=== PATIENT | female | born 1950 | race Caucasian/White ===

== ENCOUNTER 2019-02-20 11:33 | Observation (INO) ==
[2019-02-20 12:01] LABS: Basophils % 0.5 %; Eosinophils # 0.3 K/mcL (0.0-0.6); Eosinophils % 3.5 %; Hematocrit 43.1 % (35.3-44.9); Immature Granulocytes % 0.4 % (0-4); Lymphocytes # 1.9 K/mcL (0.6-4.6); Lymphocytes % 26.1 %; Mean Corpuscular HGB Conc 32.5 g/dL (31.6-35.5); Mean Corpuscular Hemoglobin 29.1 pg (28.0-33.3); Mean Corpuscular Volume 89.6 fL (83.0-100.0); Mean Platelet Volume 9.4 fL (9.4-12.4); Monocytes # 0.7 K/mcL (0.0-1.3); Monocytes % 9.3 %; Neutrophils # 4.4 K/mcL (1.6-8.9); Platelet Count 261 K/mcL (140-400); Red Blood Count 4.81 M/mcL (3.82-4.97); Red Cell Distribution Width 13.4 % (11.5-14.5); Segmented Neutrophils % 60.2 %; White Blood Count 7.4 K/mcL (4.3-11.1)
[2019-02-20 12:08] LABS: Prothrombin Time 11.9 Seconds (9.4-12.1)
[2019-02-20 12:11] LABS: Activated Partial Thrombo Time 40.9 Seconds (26.0-36.0)
[2019-02-20 12:35] LABS: Albumin/Globulin Ratio 1.3 (1.1-2.2); Bilirubin,Direct 0.1 mg/dL (0.0-0.2); Bilirubin,Indirect 0.2 mg/dL (0.0-1.2); Bilirubin,Total 0.3 mg/dL (0.3-1.0); Globulin 3.1 g/dL (2.4-3.5); Magnesium 1.6 mg/dL (1.6-2.6); Total Protein 7.1 g/dL (6.4-8.9)
[2019-02-20 12:36] LABS: BUN/Creatinine Ratio 20 (6-26); Blood Urea Nitrogen 23 mg/dL (8-23); Calcium 9.3 mg/dL (8.6-10.3); Carbon Dioxide 22 mEq/L (23-29); Chloride 109 mEq/L (98-107); Glucose 97 mg/dL (70-105); Osmolality,Calculated 296 (280-300); Sodium 141 mEq/L (136-145); Troponin I < 0.03 ng/mL (< 0.04); eGFR For African Americans 58 (> 60); eGFR For Non-African Americans 48 (> 60)
--- NOTE | 2019-02-20 12:36 | Emergency Department Note ---
Disposition Clinical Impression: Abnormal stress test Disposition: Admitted As Inpatient Condition: Good Referrals: David Chavez DO [Primary Care Provider] - Forms: ED Satisfaction Letter Time of Disposition: 13:12 Arrhythmia/Palpitations HPI - General Chief Complaint: ED Arrhythmia/Palpitations Stated Complaint: Irregular EKG Time Seen by Provider: 02/20/19 11:36 Source: EMS Limitations: no limitations Nursing Notes Reviewed: Yes Vital Signs Reviewed: Yes - History of Present Illness HPI Narrative: 69 year old female presnts to the ED with complaints of abnormal stresss test and had runs of VTAch apparanatly and was sent here for evlaution. Alice states that she has been treated for renal cell carcinoma in the past which jt has left her with one kidney. Incidentially alice has had mulitple CT Scan of the chest that dianofsed her with CAD and that she had a history of HTN and high cholesterol and positive family history. Patient states that she has been following with Conchita Herrera in [place] and has otheriwse had normal stress tests until today. Her last cardaic catherization was about 13 years ago and had minimal disease without stent placement. Alice states that todd is chest pain free and during the stress test otherwise was not experincing chest pain but did have moderate dyspnea on exertion. DEnies nauea, vomiting, or dyspnea at bedside now. - Related Data Home Medications Medication Instructions Recorded Confirmed Isosorbide MONOnitrate (24 HR) 30 mg PO DAILY 03/29/17 10/23/18 [Imdur] Metoprolol Tartrate [Lopressor] 25 mg PO BID 03/29/17 10/23/18 Aspirin [Lo-Dose Aspirin EC] 81 mg PO DAILY 11/14/17 10/23/18 Alirocumab [Praluent Pen] 75 mg SQ DAILY 10/23/18 10/23/18 Losartan Potassium 25 mg PO DAILY 10/23/18 10/23/18 Allergies Allergy/AdvReac Type Severity Reaction Status Date / Time bee venom protein (honey bee) Allergy Severe Anaphylaxis Verified 10/23/18 10:03 ampicillin Allergy Hives Verified 10/23/18 10:03 JULIO C Inhibitors AdvReac Cough Verified 10/23/18 10:03 evolocumab AdvReac Cough Verified 10/23/18 10:03 [From Repatha Pushtronex] losartan AdvReac See Verified 10/23/18 10:03 Comments potassium AdvReac See Verified 10/23/18 10:03 Comments Rhnnjli-Pbj-Lvk Reductase AdvReac Muscle Pain Verified 10/23/18 10:03 Inhibitor [Statins] Constitutional: Denies: fever, chills, weakness, weight change Eyes: Denies: eye pain, eye discharge, vision change ENT ED: Denies: ear pain, throat pain, dental pain, hearing loss, epistaxis, congestion, dysphagia Cardiovascular: Reports: dyspnea on exertion. Denies: chest pain, palpitations, edema, syncope Respiratory: Denies: cough, dyspnea, wheezes, hemoptysis, stridor Gastrointestinal: Denies: abdominal pain, nausea, vomiting, diarrhea, constipation, hematemesis, melena, hematochezia Genitourinary: Denies: dysuria, frequency, hematuria, discharge Musculoskeletal: Denies: back pain, neck pain, arthralgia, myalgia Integumentary: Denies: rash, abrasion, lesions Neurological: Denies: headache, weakness, numbness, paresthesias, confusion, abnormal gait, vertigo Psychiatric: Denies: anxiety, depression, suicidal thoughts, homicidal thoughts, auditory hallucinations, visual hallucinations Endocrine: Denies: fatigue Hematological/Lymphatic: Denies: easy bleeding, easy bruising Allergic/Immunologic: Denies: facial swelling, urticaria Past Medical History - Past Medical History Medical history: Reports: cancer, hyperlipidemia, hypertension Surgical history: Reports: Psychiatric history: Reports: no psych history - Social History Smoking Status: Never smoker Smokeless Tobacco Status: No Alcohol use: Reports: rarely Drug use: Reports: none Physical Exam - General Limitations: no limitations General appearance: alert - Head Head exam: atraumatic, normocephalic, normal inspection - Eye Eye exam: Present: normal appearance, PERRL, EOMI - Expanded Eye Exam Pupils: Bilateral: reactive - ENT ENT exam: normal exam, normal oropharynx, mucous membranes moist - Expanded ENT Exam External ear exam: Present: normal external inspection Mouth exam: Present: normal external inspection Teeth exam: Present: normal inspection Throat exam: Present: normal inspection - Neck Neck exam: Present: normal inspection, full ROM, trachea midline - Chest Chest inspection: Present: normal inspection, symmetric chest wall rise - Respiratory Respiratory exam: Present: normal lung sounds bilaterally - Cardiovascular Cardiovascular exam: Present: regular rate, normal rhythm, normal heart sounds - Abdominal Exam Abdominal exam: Present: soft, Non-Tender. Absent: tenderness, distention, guarding, rebound, rigidity - Extremities Exam Extremities exam: Present: normal inspection, full ROM. Absent: tenderness, pedal edema - Expanded Upper Extremity Exam Shoulder exam: Present: normal inspection, full ROM Arm exam: Present: normal inspection, full ROM Elbow exam: Present: normal inspection, full ROM Forearm/Wrist exam: Present: normal inspection, full ROM Hand exam: Present: normal inspection, full ROM Vascular exam: Normal: capillary refill, radial pulse - Expanded Lower Extremity Exam Hip/Pelvis exam: Present: normal inspection, full ROM Upper leg exam: Present: normal inspection, full ROM Knee exam: Present: normal inspection, full ROM Lower leg exam: Present: normal inspection, full ROM Ankle exam: Present: normal inspection, full ROM Foot/toe exam: Present: normal inspection, full ROM Neurovascular/Tendon exam: Absent: motor deficit, sensory deficit, tendon deficit - Back Exam Back exam: Present: normal inspection, full ROM. Absent: tenderness - Neurological Exam Neurological exam: Present: alert, oriented X3 - Expanded Neurological Exam Patient oriented to: Present: person, place, time Coma Scale Eye Opening: Spontaneous Coma Scale Motor Response: Obeys Commands Coma Scale Verbal Response: Oriented Coma Scale Total: 15 - Psychiatric Psychiatric exam: Present: normal affect, normal mood - Skin Skin exam: Present: warm, dry, intact, normal color Course Course Narrative: I will discuss case with cards to ibtainn more clarified information in addition to likley admit to medicine with cards cosult afther therapy and workup - Reevaluation(s) Reevaluation #1: updated patint on results and they are agreeable to plan - Consultations Consultation #1: discusssed with Dr. Lee who put me in contact with Luis Frost CNP, who put me in contact with [facility] who was able to give more informaiton. It appesr that alice was having a walking stress test and as she was approaching her target heart rate started to develop increased ST depression and had two runs of Vtach (3beats and then 7 beats with pause). Alice was alert and orienteed without increased chest pain or loss of color or LOC. Alice was evlaued by Dr. Arthur who sent her here for admission for cards consult and possible cardiac catherizations. I will discuss with electronics lead registered dental assistant rda for recommendation for heparinzation after troponoin level has resulted. In the interim period I will treat with ASA. Currently chest pain free Time: 12:36 Consultation #2: discussed case with Dr. Lee who has not given reccomendation on whether patient will require heparin therapy at this time. I will continue with ASA therapy at this time and once cardiology has consulted on patient on the floors can start heparin should they choose as her troponin is negative at this time and she is not displaing chest pain and her EKG changes are otherwise mild. Time: 13:08 Consultation #3: discusssed case with Dr. Salinas and he accepts patient to medicine. Time: 13:12 Vital Signs Temperature 97.8 F 02/20/19 11:38 Pulse Rate 72 02/20/19 11:38 Respiratory Rate 18 02/20/19 11:38 Blood Pressure 176/64 02/20/19 11:38 O2 Sat by Pulse Oximetry 100 02/20/19 11:38 Temperature 97.8 F 02/20/19 11:38 Pulse Rate 72 02/20/19 11:38 Respiratory Rate 18 02/20/19 11:38 Blood Pressure 176/64 02/20/19 11:38 O2 Sat by Pulse Oximetry 100 02/20/19 11:38 Oxygen Delivery Oxygen Delivery Room Air Arrhythmia/Palpitations - Medical Records Medical records reviewed: Yes I reviewed the patient's medical records. - Lab Data Lab results reviewed: Yes I reviewed the patient's lab results. Result diagrams: 02/20/19 11:46 02/20/19 11:46 Lab Results 02/20/19 02/20/19 02/20/19 Range/Units 11:46 11:46 11:46 WBC (4.3-11.1) K/mcL RBC (3.82-4.97) M/mcL Hgb (11.5-15.4) g/dL Hct (35.3-44.9) % MCV (83.0-100.0) fL MCH (28.0-33.3) pg MCHC (31.6-35.5) g/dL RDW (11.5-14.5) % Plt Count (140-400) K/mcL MPV (9.4-12.4) fL Immature Gran % (0-4) % Seg Neutrophils % % Lymphocytes % % Monocytes % % Eosinophils % % Basophils % % Neutrophils # (1.6-8.9) K/mcL Lymphocytes # (0.6-4.6) K/mcL Monocytes # (0.0-1.3) K/mcL Eosinophils # (0.0-0.6) K/mcL Basophils # (0.0-0.2) K/mcL PT 11.9 (9.4-12.1) Seconds INR 1.0 APTT 40.9 H (26.0-36.0) Seconds Sodium (136-145) mEq/L Potassium (3.5-5.1) mEq/L Chloride (98-107) mEq/L Carbon Dioxide (23-29) mEq/L BUN (8-23) mg/dL Creatinine (0.60-1.20) mg/dL Est GFR ( Amer) (> 60) Est GFR (Non-Af Amer) (> 60) BUN/Creatinine Ratio (6-26) Glucose (70-105) mg/dL Calculated Osmolality (280-300) Calcium (8.6-10.3) mg/dL Magnesium 1.6 (1.6-2.6) mg/dL Total Bilirubin 0.3 (0.3-1.0) mg/dL Direct Bilirubin 0.1 (0.0-0.2) mg/dL Indirect Bilirubin 0.2 (0.0-1.2) mg/dL AST 17 (13-39) Units/L ALT 15 (7-52) Units/L Alkaline Phosphatase 63 (34-104) Units/L Troponin I (< 0.04) ng/mL B-Natriuretic Peptide 69 (Less than 100) pg/mL Serum Total Protein 7.1 (6.4-8.9) g/dL Albumin 4.0 (3.5-5.7) g/dL Globulin 3.1 (2.4-3.5) g/dL Albumin/Globulin Ratio 1.3 (1.1-2.2) Lipase 55 (11-82) Units/L Urine Color (Yellow) Urine Clarity (Clear) Urine pH (5.0-8.0) pH Units Ur Specific Thornton (1.010-1.025) Urine Protein (Neg-Trace) mg/dL Urine Glucose (UA) (Normal) mg/dL Urine Ketones (Negative) mg/dL Urine Blood (Negative) Urine Nitrite (Negative) Urine Bilirubin (Negative) Urine Urobilinogen (Normal) mg/dL Ur Leukocyte Esterase (Negative) Urine Microscopic RBC (0-3) per hpf Urine Microscopic WBC (0-3) per hpf Ur Squamous Epith Cells (None-Few) per lpf Urine Bacteria (None-Few) per hpf Hyaline Casts (None-Few) per lpf Ur Culture Indicated? (NO) Urine Opiates Screen (Vfxdwp=592) ng/mL Ur Buprenorphine Scrn (Cutoff=5) ng/mL Ur Barbiturates Screen (Mbikeg=000) ng/mL Ur Phencyclidine Scrn (Cutoff=25) ng/mL Ur Amphetamines Screen (Mfdooc=9682) ng/mL U Benzodiazepines Scrn (Mqiclm=378) ng/mL Urine Cocaine Screen (Cutoff= 300) ng/mL U Marijuana (THC) Screen (Cutoff = 50) ng/mL Ur Drug Screen Interp 02/20/19 02/20/19 02/20/19 Range/Units 11:46 11:46 11:52 WBC 7.4 (4.3-11.1) K/mcL RBC 4.81 (3.82-4.97) M/mcL Hgb 14.0 (11.5-15.4) g/dL Hct 43.1 (35.3-44.9) % MCV 89.6 (83.0-100.0) fL MCH 29.1 (28.0-33.3) pg MCHC 32.5 (31.6-35.5) g/dL RDW 13.4 (11.5-14.5) % Plt Count 261 (140-400) K/mcL MPV 9.4 (9.4-12.4) fL Immature Gran % 0.4 (0-4) % Seg Neutrophils % 60.2 % Lymphocytes % 26.1 % Monocytes % 9.3 % Eosinophils % 3.5 % Basophils % 0.5 % Neutrophils # 4.4 (1.6-8.9) K/mcL Lymphocytes # 1.9 (0.6-4.6) K/mcL Monocytes # 0.7 (0.0-1.3) K/mcL Eosinophils # 0.3 (0.0-0.6) K/mcL Basophils # 0.0 (0.0-0.2) K/mcL PT (9.4-12.1) Seconds INR APTT (26.0-36.0) Seconds Sodium 141 (136-145) mEq/L Potassium 4.0 (3.5-5.1) mEq/L Chloride 109 H (98-107) mEq/L Carbon Dioxide 22 L (23-29) mEq/L BUN 23 (8-23) mg/dL Creatinine 1.13 (0.60-1.20) mg/dL Est GFR ( Amer) 58 L (> 60) Est GFR (Non-Af Amer) 48 L (> 60) BUN/Creatinine Ratio 20 (6-26) Glucose 97 (70-105) mg/dL Calculated Osmolality 296 (280-300) Calcium 9.3 (8.6-10.3) mg/dL Magnesium (1.6-2.6) mg/dL Total Bilirubin (0.3-1.0) mg/dL Direct Bilirubin (0.0-0.2) mg/dL Indirect Bilirubin (0.0-1.2) mg/dL AST (13-39) Units/L ALT (7-52) Units/L Alkaline Phosphatase (34-104) Units/L Troponin I < 0.03 (< 0.04) ng/mL B-Natriuretic Peptide (Less than 100) pg/mL Serum Total Protein (6.4-8.9) g/dL Albumin (3.5-5.7) g/dL Globulin (2.4-3.5) g/dL Albumin/Globulin Ratio (1.1-2.2) Lipase (11-82) Units/L Urine Color (Yellow) Urine Clarity (Clear) Urine pH (5.0-8.0) pH Units Ur Specific Thornton (1.010-1.025) Urine Protein (Neg-Trace) mg/dL Urine Glucose (UA) (Normal) mg/dL Urine Ketones (Negative) mg/dL Urine Blood (Negative) Urine Nitrite (Negative) Urine Bilirubin (Negative) Urine Urobilinogen (Normal) mg/dL Ur Leukocyte Esterase (Negative) Urine Microscopic RBC (0-3) per hpf Urine Microscopic WBC (0-3) per hpf Ur Squamous Epith Cells (None-Few) per lpf Urine Bacteria (None-Few) per hpf Hyaline Casts (None-Few) per lpf Ur Culture Indicated? (NO) Urine Opiates Screen Negative (Weqxco=719) ng/mL Ur Buprenorphine Scrn Negative (Cutoff=5) ng/mL Ur Barbiturates Screen Negative (Hicpji=388) ng/mL Ur Phencyclidine Scrn Negative (Cutoff=25) ng/mL Ur Amphetamines Screen Negative (Kpaoyf=6636) ng/mL U Benzodiazepines Scrn Negative (Dsquoj=427) ng/mL Urine Cocaine Screen Negative (Cutoff= 300) ng/mL U Marijuana (THC) Screen Negative (Cutoff = 50) ng/mL Ur Drug Screen Interp See Below 02/20/19 Range/Units 12:01 WBC (4.3-11.1) K/mcL RBC (3.82-4.97) M/mcL Hgb (11.5-15.4) g/dL Hct (35.3-44.9) % MCV (83.0-100.0) fL MCH (28.0-33.3) pg MCHC (31.6-35.5) g/dL RDW (11.5-14.5) % Plt Count (140-400) K/mcL MPV (9.4-12.4) fL Immature Gran % (0-4) % Seg Neutrophils % % Lymphocytes % % Monocytes % % Eosinophils % % Basophils % % Neutrophils # (1.6-8.9) K/mcL Lymphocytes # (0.6-4.6) K/mcL Monocytes # (0.0-1.3) K/mcL Eosinophils # (0.0-0.6) K/mcL Basophils # (0.0-0.2) K/mcL PT (9.4-12.1) Seconds INR APTT (26.0-36.0) Seconds Sodium (136-145) mEq/L Potassium (3.5-5.1) mEq/L Chloride (98-107) mEq/L Carbon Dioxide (23-29) mEq/L BUN (8-23) mg/dL Creatinine (0.60-1.20) mg/dL Est GFR ( Amer) (> 60) Est GFR (Non-Af Amer) (> 60) BUN/Creatinine Ratio (6-26) Glucose (70-105) mg/dL Calculated Osmolality (280-300) Calcium (8.6-10.3) mg/dL Magnesium (1.6-2.6) mg/dL Total Bilirubin (0.3-1.0) mg/dL Direct Bilirubin (0.0-0.2) mg/dL Indirect Bilirubin (0.0-1.2) mg/dL AST (13-39) Units/L ALT (7-52) Units/L Alkaline Phosphatase (34-104) Units/L Troponin I (< 0.04) ng/mL B-Natriuretic Peptide (Less than 100) pg/mL Serum Total Protein (6.4-8.9) g/dL Albumin (3.5-5.7) g/dL Globulin (2.4-3.5) g/dL Albumin/Globulin Ratio (1.1-2.2) Lipase (11-82) Units/L Urine Color Yellow (Yellow) Urine Clarity Clear (Clear) Urine pH 6.0 (5.0-8.0) pH Units Ur Specific Thornton 1.015 (1.010-1.025) Urine Protein Negative (Neg-Trace) mg/dL Urine Glucose (UA) Normal (Normal) mg/dL Urine Ketones Negative (Negative) mg/dL Urine Blood Negative (Negative) Urine Nitrite Negative (Negative) Urine Bilirubin Negative (Negative) Urine Urobilinogen Normal (Normal) mg/dL Ur Leukocyte Esterase Small H (Negative) Urine Microscopic RBC 0-3 (0-3) per hpf Urine Microscopic WBC 0-3 (0-3) per hpf Ur Squamous Epith Cells Moderate H (None-Few) per lpf Urine Bacteria None Seen (None-Few) per hpf Hyaline Casts None Seen (None-Few) per lpf Ur Culture Indicated? YES A (NO) Urine Opiates Screen (Gloshv=147) ng/mL Ur Buprenorphine Scrn (Cutoff=5) ng/mL Ur Barbiturates Screen (Qcskqx=354) ng/mL Ur Phencyclidine Scrn (Cutoff=25) ng/mL Ur Amphetamines Screen (Gcgsqm=9795) ng/mL U Benzodiazepines Scrn (Znxqrv=518) ng/mL Urine Cocaine Screen (Cutoff= 300) ng/mL U Marijuana (THC) Screen (Cutoff = 50) ng/mL Ur Drug Screen Interp - Radiology Data Radiology results reviewed: Yes I reviewed the patient's radiology results. - EKG Data EKG attestation: Yes I reviewed and interpreted this EKG. EKG results narrative: NSR with rate of 66. NO STEMI. normal intervals. change from earlier today in the laboratory administrative director. She does have residual ST depresssion in inferolaeral leads without ST elevations. [id number]
[2019-02-20 12:39] LABS: Bilirubin,Urine Negative (Negative); Blood,Urine Negative (Negative); Clarity,Urine Clear (Clear); Color,Urine Yellow (Yellow); Glucose,Urine (UA) Normal (Normal); Ketones,Urine Negative (Negative); Leukocyte Esterase,Urine Small (Negative); Nitrite,Urine Negative (Negative); Protein,Urine Negative (Neg-Trace); Specific Gravity,Urine 1.015 (1.010-1.025); Urobilinogen,Urine Normal (Normal)
[2019-02-20 12:42] LABS: Bacteria,Urine None Seen per hpf (None-Few); Hyaline Casts,Urine None Seen per lpf (None-Few); RBC,Urine 0-3 per hpf (0-3); Squamous Epithelial Cell,Urine Moderate per lpf (None-Few); WBC,Urine 0-3 per hpf (0-3)
[2019-02-20 12:54] LABS: Amphetamine Screen,Urine Negative ng/mL (Cutoff=1000); Barbiturate Screen,Urine Negative ng/mL (Cutoff=200); Benzodiazepines Screen,Urine Negative ng/mL (Cutoff=200); Cannabinoid Screen,Urine Negative ng/mL (Cutoff = 50); Cocaine Screen,Urine Negative ng/mL (Cutoff= 300); Opiate Screen,Urine Negative ng/mL (Cutoff=300); Phencyclidine Screen,Urine Negative ng/mL (Cutoff=25)
[2019-02-20] MEDS ORDERED: Ondansetron 4 MG/2 ML VIAL IVP PRN (13:30)
[2019-02-20] MEDS ORDERED: Acetaminophen 325 MG TABLET PO PRN (13:30)
[2019-02-20] MEDS ORDERED: Naloxone 0.4 MG/ML INJ IVP PRN (13:30)
[2019-02-20] MEDS ORDERED: *HR* HYDROcodone/Acet 5/325 mg TABLET PO PRN (13:30)
--- NOTE | 2019-02-20 14:25 | Internal Med History&Physical ---
Date of Encounter: 02/20/19 Time of Encounter: 14:21 Internal Medicine - H&P: HPI Chief complaint: Abnormal stress test Admitted From: Emergency Dept Plans for Post Hospital Care: Home History of present illness: Ms. 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 She denied any CP / SOB. She denied any N/V/Diarrhea. Pt stated she was told she might have CAD when she had multiple CT scans done as f/u on her s/p renal cell cancer. Past Med Surg Social Fam HX - Past Medical History Medical history: cancer, hyperlipidemia, hypertension Additional medical history: CKD, Psychiatric history: no psych history - Past Surgical History Surgical History: Additional surgical history: rt kidney removed - Social History Smoking Status: Never smoker Smokeless Tobacco Status: No Alcohol use: rarely Drug use: none Internal Medicine - H&P: Meds Isosorbide MONOnitrate (24 HR) [Imdur] 30 mg PO DAILY 03/29/17 [History] Metoprolol Tartrate [Lopressor] 25 mg PO BID 03/29/17 [History] Alirocumab [Praluent Pen] 75 mg SQ PER PKG DI 10/23/18 [History] Losartan Potassium 25 mg PO DAILY 10/23/18 [History] Allergy/AdvReac Type Severity Reaction Status Date / Time bee venom protein (honey bee) Allergy Severe Anaphylaxis Verified 10/23/18 10:03 ampicillin Allergy Hives Verified 10/23/18 10:03 JULIO C Inhibitors AdvReac Cough Verified 10/23/18 10:03 evolocumab AdvReac Cough Verified 10/23/18 10:03 [From Repatha Pushtronex] losartan AdvReac See Verified 10/23/18 10:03 Comments potassium AdvReac See Verified 10/23/18 10:03 Comments Aejrfyb-Ele-Kya Reductase AdvReac Muscle Pain Verified 10/23/18 10:03 Inhibitor [Statins] All Systems PM: A 10-system review of systems was performed and is negative for pertinent findings except as documented above in the HPI. Review of systems: All the systems are reviewed everything is benign except the systems and symptoms I mentioned in the history of present illness - Constitutional Vitals: Temp Pulse Resp BP Pulse Ox 97.8 F 71 16 138/58 100 02/20/19 11:38 02/20/19 12:46 02/20/19 12:46 02/20/19 12:46 02/20/19 12:46 General appearance: Present: cooperative, A&O X 3, no acute distress, answers questions appropriately Exam: a - Head Head exam: Present: atraumatic, normal inspection - Neck Neck exam general surgery: Present: normal inspection, supple - Respiratory Respiratory exam: Present: decreased breath sounds. Absent: rales, respiratory distress, rhonchi, wheezes - Cardiovascular Cardiovascular exam: Present: RRR, +S1, +S2. Absent: tachycardia - GI/Abdominal GI/Abdominal exam: Present: soft. Absent: rebound, rigid, tenderness, no peritoneal signs - Extremities Exam Extremities exam: Present: normal inspection. Absent: calf tenderness, pedal edema, tenderness - Back Exam Back exam: Absent: CVA tenderness (L), CVA tenderness (R) - Neurological Exam Neurological exam: Present: alert, oriented X3 - Psychiatric Psychiatric exam: Present: normal affect, normal mood Internal Med - H&P Results - Labs CBC & Chem 7: 02/20/19 11:46 02/20/19 11:46 Labs: Short CBC 02/20/19 Range/Units 11:46 WBC 7.4 (4.3-11.1) K/mcL Hgb 14.0 (11.5-15.4) g/dL Hct 43.1 (35.3-44.9) % Plt Count 261 (140-400) K/mcL Neutrophils # 4.4 (1.6-8.9) K/mcL BMP 02/20/19 11:46 Sodium 141 Potassium 4.0 Chloride 109 H Carbon Dioxide 22 L BUN 23 Creatinine 1.13 Glucose 97 Calcium 9.3 Cardiac Enzymes 02/20/19 Range/Units 11:46 Troponin I < 0.03 (< 0.04) ng/mL Liver Function 02/20/19 Range/Units 11:46 Total Bilirubin 0.3 (0.3-1.0) mg/dL Direct Bilirubin 0.1 (0.0-0.2) mg/dL AST 17 (13-39) Units/L ALT 15 (7-52) Units/L Alkaline Phosphatase 63 (34-104) Units/L Albumin 4.0 (3.5-5.7) g/dL Urine 02/20/19 Range/Units 12:01 Urine Color Yellow (Yellow) Urine Clarity Clear (Clear) Urine pH 6.0 (5.0-8.0) pH Units Ur Specific Rudy 1.015 (1.010-1.025) Urine Protein Negative (Neg-Trace) mg/dL Urine Glucose (UA) Normal (Normal) mg/dL - Impressions ITS Impressions Chest X-Ray 02/20/19 11:54 IMPRESSION: Minimal left basilar atelectasis. D/ / Laura Negro MD / Laura Negro MD Interpreting Provider: Laura Negro MD - Assessment and Plan (1) Abnormal stress test Current Visit: Yes Status: Acute Assessment and plan: Will admit the pt into Tele for observation Will place pt on retail key holder check serial troponin so far negative troponin EKG reviewed will start pt on ASA and Nitro PRN for pain cont Metoprolol and ARB Will check FLP in AM Consulted cardiology for further eval Possible LHC in AM NPO after mid night (2) HTN (hypertension) Current Visit: Yes Status: Acute Assessment and plan: resumed home meds Qualifiers: Hypertension type: essential hypertension Qualified Code(s): I10 - Essential (primary) hypertension (3) HLD (hyperlipidemia) Current Visit: Yes Status: Acute Assessment and plan: check FLP in AM Qualifiers: Hyperlipidemia type: unspecified Qualified Code(s): E78.5 - Hyperlipidemia, unspecified (4) CKD (chronic kidney disease), stage III Current Visit: Yes Status: Acute Assessment and plan: stable Cr at baseline avoid nephro toxic meds consulted Nephro for further eval will start her on IVF and Acetyl cystiene prior to LHC (5) S/p nephrectomy Current Visit: Yes Status: Acute - Time Spent With Patient Total time spent is greater than 50% in coordination of care (as documented) at patient's floor/unit and/or counseling patient:
[2019-02-20] MEDS ORDERED: Aspirin Enteric Coated 325 MG Tablet PO ONE (14:50)
--- NOTE | 2019-02-20 15:14 | Electrocardiograph Report ---
[address] [address] Test Date: 2019-02-20 Pat Name: Belgica Carrizales Department: [id number] Room: 3B13 Gender: F Sales Demonstrator: : 1950 Requested By: Melissa Nino Order Number: [id number] Reading MD: Grant Duenas Measurements Intervals [place] Rate: 66 P: 49 MO: 149 QRS: 56 QRSD: 94 T: 50 QT: 405 QTc: 425 Interpretive Statements Sinus rhythm BASELINE ARTIFACT Electronically Signed On 02-20-2019 15:12:50 EDT by Grant Duenas
--- NOTE | 2019-02-20 15:19 | Cardiology Consult Note ---
<Lefty Duff - Last Filed: 02/20/19 15:10> Date of Encounter: 02/20/19 Time of Encounter: 15:10 Assessment and Plan (1) Abnormal stress test Current Visit: Yes Status: Acute Stress test reviewed. Stress test Exercise ECG is positive for ischemia in leads II, III, aVF, V4-V6 There is a small sized reversible perfusion defect which is mild in intensity in the apical anterior segment suggestive of ischemia There was Non-sustained VT during stress, patient sent from [place] to [facility] on account of this. The patient demonstrated a hypertensive blood pressure response. Gated EF = >70%. There is evidence of TID. High risk stress test. ( > 3% annual or AK) Stress test ordered due to CT showing CAD in LAD territory, dyspnea, and indigestion. Mildly abnormal stress test 2014. Last LHC [address] [facility] demonstrated normal coronaries per reports. Notes occasional chest discomfort. CRF include HTN, HLD, borderline DM type II, CKD stage III. [facility] recommended for abnormal stress test. Notes prior nephrectomy. Appreciate nephrology recommendations jan-procedure. NPO after midnight. Patient agrees to proceed pending discussion with nephrology. (2) CKD (chronic kidney disease), stage III Current Visit: Yes Status: Acute Stable. IVF periprocedure. (3) S/p nephrectomy Current Visit: Yes Status: Acute Discussion w patient/family: The assessment and plan as outlined above was discussed with the patient and/or family members who expressed understanding and agreement. All questions were answered. Thank you for involving us in the care of your patient. Please call with any questions. History of Present Illness Consult date: 02/20/19 Requesting physician: Minda Baker Consult reason: abnormal stress, VT Chief complaint: Chest pain History of present illness: Ms. Carrizales is a 69 year old female with history of HTN, HLD, renal cell cancer s/p nephrectomy. She presents from [facility] Stress lab for abnormal stress test showing ECG changes concerning for ischemia and non-sustained ventricular tachycardia. There was a reversible perfusion defect in the apical and anterior wall concerning for ischemia. Due to high risk findings she was sent to the ED. She denies having chest pain with stress test. She c/o intermittent chest pain described as a mild chest pressure with no aggravating factors. She notes recent vacation with 4-5 mile hike with no significant chest pin. She did notice mild SOB with incline. Denies having chest pain during stress test. Past Med Surg Social Fam HX - Past Medical History Medical history: cancer, hyperlipidemia, hypertension Additional medical history: CKD, Psychiatric history: no psych history - Past Surgical History Surgical History: Additional surgical history: rt kidney removed - Social History Smoking Status: Never smoker Smokeless Tobacco Status: No Alcohol use: rarely Drug use: none Medications and Allergies Isosorbide MONOnitrate (24 HR) [Imdur] 30 mg PO DAILY 03/29/17 [History] Alirocumab [Praluent Pen] 75 mg SQ Q2W 10/23/18 [History] Losartan Potassium 50 mg PO DAILY 02/20/19 [History] Metoprolol [Lopressor] 25 mg PO BID 02/20/19 [History] Allergy/AdvReac Type Severity Reaction Status Date / Time bee venom protein (honey bee) Allergy Severe Anaphylaxis Verified 10/23/18 10:03 ampicillin Allergy Hives Verified 10/23/18 10:03 JULIO C Inhibitors AdvReac Cough Verified 10/23/18 10:03 evolocumab AdvReac Cough Verified 10/23/18 10:03 [From Repatha Pushtronex] losartan AdvReac See Verified 10/23/18 10:03 Comments potassium AdvReac See Verified 10/23/18 10:03 Comments Qjnerix-Yqx-Vpt Reductase AdvReac Muscle Pain Verified 10/23/18 10:03 Inhibitor [Statins] All Systems Review: The remainder of the systems were reviewed and are negative Physical Examination Vital Signs, Last 4 Hours Temp Pulse Resp BP Pulse Ox 02/20/19 15:03 98.0 F 62 16 166/70 98 02/20/19 14:45 16 160/92 02/20/19 12:46 71 16 138/58 100 02/20/19 11:38 97.8 F 72 18 176/64 100 General: Conversant, No Apparent Distress HEENT: Atraumatic, Normocephaly, Mucus Membranes Moist Neck: No JVD, Normal carotid pulses Cardiac: Reg Rate and Rhythm, Normal S1 and S2, No Murmur Lungs: Normal Breath Sounds, No Wheeze, Rales, Rhonchi Neuro: Alert and responsive, No focal deficits noted Abdomen: Soft, Non-Tender Skin: No rashes noted on visualized skin Musculoskeletal: No Chest Wall Tenderness Extremities: No Clubbing, No Cyanosis, No Edema, Normal Pulses Results 02/20/19 11:46 02/20/19 11:46 Lab Results 02/20/19 02/20/19 02/20/19 11:46 11:46 11:46 WBC Hgb Hct Plt Count INR 1.0 APTT 40.9 H Sodium Potassium Chloride Carbon Dioxide BUN Creatinine Glucose Calcium Magnesium 1.6 Total Bilirubin 0.3 AST 17 ALT 15 Alkaline Phosphatase 63 Troponin I B-Natriuretic Peptide 69 Lipase 55 02/20/19 02/20/19 11:46 11:46 WBC 7.4 Hgb 14.0 Hct 43.1 Plt Count 261 INR APTT Sodium 141 Potassium 4.0 Chloride 109 H Carbon Dioxide 22 L BUN 23 Creatinine 1.13 Glucose 97 Calcium 9.3 Magnesium Total Bilirubin AST ALT Alkaline Phosphatase Troponin I < 0.03 B-Natriuretic Peptide Lipase - Imaging and Cardiology Echo: report reviewed Cardiac cath: report reviewed - EKG Interpretation EKG results cardiology: personally reviewed Consult Discharge Plan - Plan Referrals: David Chavez DO [Primary Care Provider] - Cardiac Rehab - Cardiac Rehab Cardiac Rehab: Phase I consult completed. Patient was educated on why Cardiac Rehabilitation is beneficial to his/her health. Participating in a cardiac rehabilitation can improve the following: strengthen your heart, improve ejection fraction, weight reduction, decrease cholesterol levels, lower blood pressure, lower blood sugar, improve stamina, and enhance self-image. If he/she has any questions, they were instructed to call [facility] at [phone]. <Desi Lee - Last Filed: 02/20/19 17:15> Date of Encounter: 02/20/19 - Attending Attestation I examined this patient and my medical decision-making was reviewed with the CROZE CUTTER. I agree with the documented findings, disposition and treatment plan as described. Ms. Carrizales presents from [facility] after undergoing stress testing that was abnormal. Stress test personally reviewed demonstrating marketed ST abnormalities and NSVT at peak exercise. She denies having chest symptoms but felt dizzy at the end of exercise. Perfusion images demonstrate a mild apical perfusion defect with mild TID. Patient denies history of CAD. Discussed stress test findings in detail with patient and family members present. Cardiovascular risk factors include female post menopausal gender, hypertension and dyslipidemia with borderline diabetes. Discussed options with patient and her family members. Given extent of abnormalities on stress testing, would recommend proceeding with left heart catheterization for high risk findings. The risks, benefits and alternatives of LHC were discussed with the patient. She expressed understanding and has decided to proceed. All questions were answered to patient satisfaction. Assessment and Plan Discussion w patient/family: The assessment and plan as outlined above was discussed with the patient and/or family members who expressed understanding and agreement. All questions were answered. Thank you for involving us in the care of your patient. Please call with any questions. History of Present Illness History of present illness: Ms. Carrizales is a 69 year old female All Systems Review: The remainder of the systems were reviewed and are negative Physical Examination Vital Signs, Last 4 Hours Temp Pulse Resp BP Pulse Ox 02/20/19 15:03 98.0 F 62 16 166/70 98 02/20/19 14:45 16 160/92 Results 02/20/19 11:46 02/20/19 11:46 Lab Results 02/20/19 02/20/19 02/20/19 11:46 11:46 11:46 WBC Hgb Hct Plt Count INR 1.0 APTT 40.9 H Sodium Potassium Chloride Carbon Dioxide BUN Creatinine Glucose Calcium Magnesium 1.6 Total Bilirubin 0.3 AST 17 ALT 15 Alkaline Phosphatase 63 Troponin I B-Natriuretic Peptide 69 Lipase 55 02/20/19 02/20/19 11:46 11:46 WBC 7.4 Hgb 14.0 Hct 43.1 Plt Count 261 INR APTT Sodium 141 Potassium 4.0 Chloride 109 H Carbon Dioxide 22 L BUN 23 Creatinine 1.13 Glucose 97 Calcium 9.3 Magnesium Total Bilirubin AST ALT Alkaline Phosphatase Troponin I < 0.03 B-Natriuretic Peptide Lipase Cardiac Rehab - Cardiac Rehab Cardiac Rehab: Phase I consult completed. Patient was educated on why Cardiac Rehabilitation is beneficial to his/her health. Participating in a cardiac rehabilitation can improve the following: strengthen your heart, improve ejection fraction, weight reduction, decrease cholesterol levels, lower blood pressure, lower blood sugar, improve stamina, and enhance self-image. If he/she has any questions, they were instructed to call [facility] at [phone].
--- NOTE | 2019-02-20 15:26 | Nephrology Consult Note ---
Date of Encounter: 02/20/19 Time of Encounter: 15:22 Assessment and Plan (1) CKD (chronic kidney disease), stage III Current Visit: Yes Status: Acute s/p nephrectomy to renal cell carcinoma in 2017. Discussed at length contrast induced nephropathy,and best way to prevent complications. Best practice is hydration before the procedure, NS ordered. GFR stable today, 48. NS 75/hr to start at 2300 tonight. NPO at midnight. Avoid other nephrotoxins and renal dose all medications. Strict I/O Daily weights. (2) HLD (hyperlipidemia) Current Visit: Yes Status: Acute Per cardio. Qualifiers: Hyperlipidemia type: unspecified Qualified Code(s): E78.5 - Hyperlipidemia, unspecified (3) HTN (hypertension) Current Visit: Yes Status: Acute Continue current regimen. Qualifiers: Hypertension type: essential hypertension Qualified Code(s): I10 - Essential (primary) hypertension (4) S/p nephrectomy Current Visit: Yes Status: Acute History of Present Illness - Reason for Consult Consult date: 02/20/19 Chronic Kidney Disease Requesting physician: Minda Baker - Chief Complaint CKD 3 - History of Present Illness Ms. Carrizales is a 69 year old female who presented to ED with abnormal stress test. PMH: s/p nephrectomy 02/2017 due to renal cell carcinoma, no radiation or chemo indicated, CAD, and CKD 3. She is a patient of Dr. Zendejas in the office. She was found to have CAD on a CT scan and was referred to Cardiology. She c/o of indigestion and had an abnormal stress test today. Cardio would like to proceed with LHC tomorrow. Denies chest pain or shortness of breath. Denies nausea, vomiting, diarrhea. Denies hematuria or dysuria. GFR is 48, stable. [facility] were consulted to make recommendations regarding CKD and LHC. Denies tobacco use, etoh, or illicit drug use. Denies FH of CKD or HD. Lives at home with spouse. Past Med Surg Social Fam HX - Past Medical History Medical history: cancer, hyperlipidemia, hypertension Additional medical history: CKD, Psychiatric history: no psych history - Past Surgical History Surgical History: Additional surgical history: rt kidney removed - Social History Smoking Status: Never smoker Smokeless Tobacco Status: No Alcohol use: rarely Drug use: none - Family History Mother Hx Family Neurologic Disorders: Yes (CVA) Maternal Grandmother Hx Family Cardiac Disorders: Yes Maternal Grandfather Hx Family Cardiac Disorders: Yes Father Hx Family Endocrine Disorder: Yes (DM) Paternal Grandmother Hx Family Cardiac Disorders: Yes Medications and Allergies Isosorbide MONOnitrate (24 HR) [Imdur] 30 mg PO DAILY 03/29/17 [History] Alirocumab [Praluent Pen] 75 mg SQ Q2W 10/23/18 [History] Losartan Potassium 50 mg PO DAILY 02/20/19 [History] Metoprolol [Lopressor] 25 mg PO BID 02/20/19 [History] Allergy/AdvReac Type Severity Reaction Status Date / Time bee venom protein (honey bee) Allergy Severe Anaphylaxis Verified 10/23/18 10:03 ampicillin Allergy Hives Verified 10/23/18 10:03 JULIO C Inhibitors AdvReac Cough Verified 10/23/18 10:03 evolocumab AdvReac Cough Verified 10/23/18 10:03 [From Repatha Pushtronex] losartan AdvReac See Verified 10/23/18 10:03 Comments potassium AdvReac See Verified 10/23/18 10:03 Comments Qbwxaup-Oas-Fgn Reductase AdvReac Muscle Pain Verified 10/23/18 10:03 Inhibitor [Statins] Review of Systems All Systems review (narrative): The remainder of the systems are negative. Constitutional: no chills, no fatigue, no fever(s) Cardiovascular: no chest pain, no dyspnea, no edema Respiratory: no cough Gastrointestinal: dyspepsia, heartburn, no change in bowel habits, no diarrhea, no nausea, no vomiting Genitourinary Female: no hematuria, no urinary frequency, no urinary hesitancy, no urinary urgency Exam - Vital Signs Vital signs: Initial Vital Signs Temp Pulse Resp BP Pulse Ox 97.8 F 72 18 176/64 100 02/20/19 11:38 02/20/19 11:38 02/20/19 11:38 02/20/19 11:38 02/20/19 11:38 Vital Signs - Last 8 Hours Temp Pulse Resp BP Pulse Ox 02/20/19 15:03 98.0 F 62 16 166/70 98 02/20/19 14:45 16 160/92 02/20/19 12:46 71 16 138/58 100 02/20/19 11:38 97.8 F 72 18 176/64 100 Intake and Output 02/19/19 02/20/19 02/20/19 23:59 07:59 15:59 Other: Weight 75.013 kg Patient Weight 02/20/19 23:59 Weight 75.013 kg - General Appearance General appearance: well-developed, well-nourished EENT: ATNC, hearing intact, vision intact Neck: supple Respiratory: clear Cardiology: no edema, normal S1, normal S2 Gastrointestinal: normoactive bowel sounds, no tenderness, no guarding Integumentary: no rash, warm and dry Neurologic: alert and oriented x3 Psychiatric: mood/affect appropriate, cooperative Results - Lab Results 02/20/19 11:46 02/20/19 11:46 Most recent lab results 02/20/19 02/20/19 11:46 11:46 Calcium 9.3 Magnesium 1.6 Consult Discharge Plan - Plan Referrals: David Chavez DO [Primary Care Provider] -
[2019-02-20] MEDS ORDERED: *HR* Heparin 5,000 UNIT/ML VIAL IVP PRN ×2 (18:52)
[2019-02-20] MEDS ORDERED: *HR* Heparin 5,000 UNIT/ML VIAL IVP ONE (18:52)
[2019-02-20] MEDS ORDERED: Heparin 25,000 UNIT/250 ML D5W 25,000 UNIT/250 ML IV.SOLN IVC SCH (19:00)
[2019-02-20 20:00] LABS: Hematocrit 39.5 % (35.3-44.9); Mean Corpuscular HGB Conc 32.9 g/dL (31.6-35.5); Mean Corpuscular Hemoglobin 29.2 pg (28.0-33.3); Mean Corpuscular Volume 88.8 fL (83.0-100.0); Mean Platelet Volume 9.6 fL (9.4-12.4); Platelet Count 262 K/mcL (140-400); Red Blood Count 4.45 M/mcL (3.82-4.97); Red Cell Distribution Width 13.5 % (11.5-14.5); White Blood Count 7.9 K/mcL (4.3-11.1)
[2019-02-20 20:12] LABS: Heparin anti-factor XA UFH 0.03 IU/mL (0.30-0.70); INR 1.1; Prothrombin Time 12.4 Seconds (9.4-12.1)
[2019-02-20] MEDS: 0.9 % Sodium Chloride 1,000 ML IVC SCH (23:28)
[2019-02-21 01:47] LABS: Potassium 3.8 mEq/L (3.5-5.1)
[2019-02-21 01:48] LABS: Calcium 8.7 mg/dL (8.6-10.3); Chol/HDL Ratio 3.3 (0-4.9)
[2019-02-21] MEDS: Isosorbide MONOnitrate (24 HR) 30 MG TAB.ER.24H PO SCH (08:31)
[2019-02-21] MEDS: 0.9 % Sodium Chloride 1,000 ML IVC SCH ×2 (08:31→17:26)
[2019-02-21] MEDS: Aspirin Enteric Coated 81 MG Tablet PO SCH (08:31)
--- NOTE | 2019-02-21 09:20 | Event Note ---
Date of Encounter: 02/21/19 Time of Encounter: 09:18 - Cardiology Event Note PLan for LHC today for high risk abnormal stress test. Nephrology note reviewed. Risks versus benefits of LHC explained to patient and family and agreeable to proceed. On asa, BB, heparin drip. Not on statin due to intolerance. HAS-BLED Score - Score Elderly: Age>65 years Medication usage predisposing to bleeding: Antiplatelet agents, NSAIDs, Anticoagulants Score: 2
[2019-02-21] MEDS ORDERED: 0.9 % Sodium Chloride 1,000 ML ONE ×2 (09:38→12:57)
[2019-02-21] MEDS ORDERED: *HR* Heparin 10,000 UNIT/10 ML VIAL ONE (09:38)
[2019-02-21] MEDS ORDERED: Heparin 1,000 UNITS/500 mL 500 ML ONE (09:38)
[2019-02-21] MEDS ORDERED: ISOVUE-370 200 ML INFUS..BTL ONE (09:38)
[2019-02-21] MEDS ORDERED: Verapamil 5 MG/2 ML VIAL ONE ×2 (09:38→15:05)
[2019-02-21] MEDS ORDERED: Nitroglycerin 1,000 MCG/10 ML VIAL IV ONE (09:39)
--- NOTE | 2019-02-21 11:52 | Internal Med Progress Note ---
Hospitalist Progress Note - Encounter Date of Encounter: 02/21/19 Time of Encounter: 10:00 - Subjective Interval History: Pt was seen and examined at bed side. She denied any CP. Her trop peaked at 0.08 and started trending down Currently on Heparin gtt - Exam Vitals: Temp Pulse Resp BP Pulse Ox 97.9 F 82 16 115/64 96 02/21/19 11:42 02/21/19 11:42 02/21/19 11:42 02/21/19 11:42 02/21/19 11:42 Exam: Gen: Alert, awake, Oriented to time,place and person Chest: Diminished breath sounds B/L, No wheezing, No crackles, No rales Heart: S1S2+ RRR No murmurs Abd: Soft, NT, BS +, No organomegaly Ext: No edema, pulses are palpable, No calf tenderness Neuro : No acute focal neuro deficits noticed Skin: No rash. - Assessment and Plan (1) Abnormal stress test Current Visit: Yes Status: Acute Assessment and Plan: Her trop peaked at 0.08 and started trending down Denied any active CP Cont ASA and Nitro PRN for pain cont Metoprolol and ARB Reviewed her FLP - LDL @ 67 Scheduled for [facility] today cont heparin gtt for now Cont IV hydration (2) Elevated troponin Current Visit: Yes Status: Acute Assessment and Plan: Due to demand ischemia with stress test denied any CP cont heparin gtt scheduled for [facility] today (3) HTN (hypertension) Current Visit: Yes Status: Acute Assessment and Plan: stable with current home meds (4) HLD (hyperlipidemia) Current Visit: Yes Status: Acute Assessment and Plan: Unable to tolerate statin However her LDL @ 67 (5) CKD (chronic kidney disease), stage III Current Visit: Yes Status: Acute Assessment and Plan: stable Cr at baseline avoid nephro toxic meds consulted Nephro for further eval - appreciate recommendations cont IVF (6) S/p nephrectomy Current Visit: Yes Status: Acute - Time Spent with Patient Total time spent is greater than 50% in coordination of care (as documented) at patient's floor/unit and/or counseling patient: Internal Medicine: Result - Labs CBC & Chem 7: 02/20/19 19:27 02/21/19 01:16 Labs: Short CBC 02/20/19 02/20/19 Range/Units 11:46 19:27 WBC 7.4 7.9 (4.3-11.1) K/mcL Hgb 14.0 13.0 (11.5-15.4) g/dL Hct 43.1 39.5 (35.3-44.9) % Plt Count 261 262 (140-400) K/mcL Neutrophils # 4.4 (1.6-8.9) K/mcL BMP 02/20/19 02/21/19 11:46 01:16 Sodium 141 141 Potassium 4.0 3.8 Chloride 109 H 110 H Carbon Dioxide 22 L 23 BUN 23 19 Creatinine 1.13 1.18 Glucose 97 101 Calcium 9.3 8.7 Cardiac Enzymes 02/20/19 02/20/19 02/20/19 Range/Units 11:46 16:53 23:03 Troponin I < 0.03 0.08 H* 0.06 H* (< 0.04) ng/mL Liver Function 02/20/19 Range/Units 11:46 Total Bilirubin 0.3 (0.3-1.0) mg/dL Direct Bilirubin 0.1 (0.0-0.2) mg/dL AST 17 (13-39) Units/L ALT 15 (7-52) Units/L Alkaline Phosphatase 63 (34-104) Units/L Albumin 4.0 (3.5-5.7) g/dL Urine 02/20/19 Range/Units 12:01 Urine Color Yellow (Yellow) Urine Clarity Clear (Clear) Urine pH 6.0 (5.0-8.0) pH Units Ur Specific [place] 1.015 (1.010-1.025) Urine Protein Negative (Neg-Trace) mg/dL Urine Glucose (UA) Normal (Normal) mg/dL - ABG Interpretation ABG results: PT/INR, D-dimer PT 12.4 Seconds (9.4-12.1) H 02/20/19 19:27 - Impressions Impressions Chest X-Ray 02/20/19 11:54 IMPRESSION: Minimal left basilar atelectasis. D/ / Laura Negro MD / Laura Negro MD Interpreting Provider: Laura Negro MD Consult Discharge Plan - Plan Referrals: David Chavez DO [Primary Care Provider] - (3) HTN (hypertension) Qualifiers: Hypertension type: essential hypertension Qualified Code(s): I10 - Essential (primary) hypertension (4) HLD (hyperlipidemia) Qualifiers: Hyperlipidemia type: unspecified Qualified Code(s): E78.5 - Hyperlipidemia, unspecified
--- NOTE | 2019-02-21 12:19 | Pre-Sedation Evaluation ---
Pre-sedation evaluation - Pre-sedation checklist Date of procedure: 02/21/19 Procedure: cath Recent Vitals: Last Vital Signs Temp 97.9 F 02/21/19 11:42 Pulse 82 02/21/19 11:42 Resp 16 02/21/19 11:42 BP 115/64 02/21/19 11:42 Pulse Ox 96 02/21/19 11:42 H&P (including ROS) documented in medical record: Yes Previous reaction to sedatives/anesthetics: No Dietary Status: NPO after Midnight Airway Assessment: Patient can open mouth completely, TMJ function normal Possible difficult airway: No ASA Classification *see protocol: CLASS II-Mild systemic disease Cardiac Registry (Cardio Only) - Functional Capacity Functional Capacity: >=4 METS with symptoms - Clincal Frailty Scale Clinical Frailty Scale: Well
--- NOTE | 2019-02-21 12:58 | Nephrology Progress Note ---
Date of Encounter: 02/21/19 Time of Encounter: 09:30 - Assessment and Plan (1) CKD (chronic kidney disease), stage III Current Visit: Yes Status: Acute s/p nephrectomy to renal cell carcinoma in 2017. Discussed at length contrast induced nephropathy,and best way to prevent complications. Best practice is hydration before the procedure, NS ordered. GFR stable today, 46. NS 75/hr continue until 4 hours post procedure. Force fluids by mouth after procedure. Renal diet after procedure. Avoid other nephrotoxins and renal dose all medications. Strict I/O Daily weights. BMP in AM. (2) HLD (hyperlipidemia) Current Visit: Yes Status: Acute Per cardio. Qualifiers: Hyperlipidemia type: unspecified Qualified Code(s): E78.5 - Hyperlipidemia, unspecified (3) HTN (hypertension) Current Visit: Yes Status: Acute Continue current regimen. Qualifiers: Hypertension type: essential hypertension Qualified Code(s): I10 - Essential (primary) hypertension (4) S/p nephrectomy Current Visit: Yes Status: Acute Subjective Principal diagnosis: abnormal stress test Interval history: Pt seen and examined, is overall feeling well. Denies chest pain or shortness of breath. Denies nausea, vomiting, diarrhea. Objective - Vital Signs Vital signs: Vital Signs Temp Pulse Resp BP Pulse Ox 02/21/19 11:42 97.9 F 82 16 115/64 96 02/21/19 07:03 97.7 F 64 16 127/62 96 02/21/19 03:43 97.9 F 57 16 127/67 97 02/21/19 00:14 97.9 F 60 16 110/53 97 02/20/19 19:11 98.2 F 71 16 136/70 96 02/20/19 15:03 98.0 F 62 16 166/70 98 02/20/19 14:45 16 160/92 Intake and Output 02/20/19 02/21/19 02/21/19 23:59 07:59 15:59 Intake Total 300 / 300 62 / 1078 1015 / 1078 Balance 300 / 300 8 1015 / 1078 Intake: IV Fluids 1077 / 1078 0.9 % Sodium Chloride 1,000 ML 1000 / 1000 @ 100 mls/hr IVC .Q10H JESU Rx#: [id number] Heparin 25,000 UNIT/250 ML D5W 25,000 unit In 250 ml @ 12 UNIT /KG/HR 9.002 mls/hr IVC .Q24H JESU Rx#:[id number] Oral 300 / 300 Other: # Voids 1 1 Weight 75 kg Patient Weight 02/21/19 23:59 Weight 75 kg - General Appearance General appearance: Present: well-developed, well-nourished EENT: Present: ATNC, hearing intact, vision intact Neck: Present: supple Respiratory: Present: clear Cardiology: Present: no edema, normal S1, normal S2 Gastrointestinal: Present: normoactive bowel sounds, no tenderness, no guarding Integumentary: Present: no rash, warm and dry Neurologic: Present: alert and oriented x3 Musculoskeletal: Present: no deformities, no erythema Psychiatric: Present: mood/affect appropriate, cooperative - Lab 02/20/19 19:27 02/21/19 01:16 Most recent lab results 02/21/19 01:16 Calcium 8.7 Consult Discharge Plan - Plan Referrals: David Chavez DO [Primary Care Provider] -
[2019-02-21] MEDS ORDERED: *HR* Midazolam HCl 2 MG/2 ML VIAL ONE (14:59)
[2019-02-21] MEDS ORDERED: *HR* FentaNYL (PF) 100 MCG/2 ML VIAL ONE (15:04)
--- NOTE | 2019-02-21 15:26 | Pre-Sedation Evaluation ---
Pre-sedation evaluation - Pre-sedation checklist Date of procedure: 02/21/19 Procedure: [facility] Recent Vitals: Last Vital Signs Temp 97.9 F 02/21/19 11:42 Pulse 82 02/21/19 11:42 Resp 16 02/21/19 11:42 BP 115/64 02/21/19 11:42 Pulse Ox 96 02/21/19 11:42 H&P (including ROS) documented in medical record: Yes Previous reaction to sedatives/anesthetics: No Dietary Status: NPO after Midnight Dentition: No loose teeth or bridges
--- NOTE | 2019-02-21 15:27 | Event Note ---
Date of Encounter: 02/21/19 Time of Encounter: 15:26 - Cardiology Event Note Cath completed LVEF 55% RCA normal LCA 25% mid lad normal circ Recommend bblockers cardiac MRI to search for significant LGE. Or rvot dysplasia.
--- NOTE | 2019-02-21 15:33 | Invasive Diagnostic Lab Proc ---
Name: Belgica Carrizales Date of Study: 02/21/2019 Date: 1950 Ht: 64.2in Medical Record#: [id number] Age: 69 Wt: 165.35lb Gender: Female BSA: 1.81 Order #: [id number] BMI: 28.23 Physicians Procedure Physician: Dio Gonzalez MD Referring MD: Referring MD: Staff Name Position Time In Dahlia Green RN Monitor 03:02 PM Brea Pina RN Truck Unloader 03:02 PM Winnie Sanchez RT (R) Scrub 03:02 PM Indications Indication Other-Abnormal Test - Stress Procedures Performed Procedure L HRT ARTERY/VENTRICLE ANGIO Pre-Procedure Checklist Informed consent is complete signed and on chart. H&P is on chart. ID band is on and ID verified with patient. Patient NPO for procedure The procedure was described for the patient and questions were answered. Blood Pressure: 127/62 ECG is on chart. Rhythm: NSR Plan of Care Patient will tolerate the procedure without complications. Adequate level of comfort will be maintained. Hemodynamics will remain stable Patient will recover from procedure without complications. Respiratory function will be maintained. Cardiac rhythm will remain stable. Patient temperature will be maintained. Patient and/or family have verbalized understanding of the procedure. Patient Education Chief Complaint/Reason for Test: Cardiac Cath Developmental Category: Geriatric (65+ years) Developmentally Appropriate for Age: Yes Learning Barriers: None Education Needs: Procedure Education Method: Verbal Information Taught: Cardiac Cath Educational Evaluation: Able to repeat information Intravenous Access Time IV Size Location DC'd Fluid/Drip Rate Units RN 22g 1" Patent On Arrival Rt Hand 0.9NaCl Allergies JULIO C Inhibitors potassium losartan ampicillin bee venom protein (honey bee) Zsyremd-Fog-Slg Reductase Inhibitor Vital Signs Time BP (mmHg) HR (bpm) O2 Sat. RR (bpm) LOC 03:03 PM / % 5 = Fully awake and oriented or at pre-proc level 03:03 PM / % 4 = Oriented but drowsy 02:57 PM 172 / 67 56 % 18 03:02 PM 155 / 60 59 100 % 20 03:07 PM 129 / 57 58 99 % 22 03:12 PM 124 / 54 55 98 % 26 03:17 PM 145 / 64 60 97 % 21 Procedural Medications Time Medication Dose Units Method Given By 03:02 PM Versed 2 mg Intravenous Brea Pina RN 03:05 PM Fentanyl 25 mcg Intravenous Brea Pina RN 03:06 PM Lidocaine 2% 1 ml Subcutaneous Dio Gonzalez MD 03:06 PM Heparin 0 units Nitroglycerin 200 mcg Verapamil 2.5 mg Intraarterial Dio Gonzalez MD ASA Classification: CLASS II- Mild systemic disease (i.e. well-controlled diabetes, hypertension, asthma, cigarette smoking) Sandor Score Preprocedure Postprocedure Activity 2- Moves 4 extremities sustained head lift Activity 2- Moves 4 extremities sustained head lift Circulation 2- SBP +/= 20 points of pre-anesthetic level Circulation 2- SBP +/= 20 points of pre-anesthetic level Consciousness 2- Awake and alert oriented x 3 Consciousness 2- Awake and alert oriented x 3 O2 Saturation 2- Able to maintain O2 satruation of 92% on room air O2 Saturation 2- Able to maintain O2 satruation of 92% on room air Respiratory 2- Able to deep breathe and cough well Respiratory 2- Able to deep breathe and cough well Total Score 10 Total Score 10 Contrast Agent: Isovue Diagnostic Contrast: 60 ml Total Contrast: 60 ml Fluoro Dose: 11 mGy Procedure Log Time Note Enter By 02:56 PM CathStat 02:56 PM Vitals capture started with the following parameters, Patient=Adult, Interval=5 min, Initial Lbclupeg=547 mmHg, Deflation Rate=5 mmHg, Cuff placed on Left Arm 02:56 PM Recorded ECG: HR=56 Condition=Condition 1 02:57 PM HR=56 bpm, CJWW=220/67 mmhg, Resp=18 B/min 02:58 PM Pt arrived to pharmaceutical laboratory technician 1 at 14:58 [facility] 02:58 PM heparin drip stopped in room prior to arrival. [facility] 03:00 PM Physician arrived 15:00 [facility] 03:00 PM Meet and greet completed [facility] 03:00 PM Sign in performed according to hospital policy. Informed consent was obtained. [facility] 03:02 PM Procedure start 15:02 [facility] 03:02 PM HR=59 bpm, AWJU=999/60 mmhg, IjH0=923.0 %, Resp=20 B/min 03:02 PM Time: 15: Versed 2 mg Intravenous Given by Brea Pina RN [facility] 03:02 PM Dahlia Green RN Position: Monitor Time in: 15:02 [facility] 03:02 PM Brea Pina RN Position: Truck Unloader Time in: 15: [facility] 03:02 PM Winnie Sanchez RT (R) Position: Scrub Time in: 15: [facility] 03:02 PM Patient charges- Angio tray pack, Navilyst 3mm J, Pulse Oximetry and ACIST tubing and transducer [facility] 03:03 PM Case Delayed No [facility] 03:03 PM Hair removed from procedure site in procedure lab using clippers. Right wrist and Right groin prepped with Chloraprep by Brea Pina RN, then patient was draped. Skin intact. [facility] 03:03 PM Time: 15:03 Patient comfortable and pain free: Yes [facility] 03:03 PM Time: 15:03LOC: 5 = Fully awake and oriented or at pre-proc level [facility] 03:03 PM Time out was performed according to hospital policy. Conscious sedation and anesthesia was achieved (see medication log with in this report above) [facility] 03:04 PM Pressure channel 2 zeroed. 03:05 PM Time: 15:05 Fentanyl 25 mcg Intravenous Given by Brea Pina RN [facility] 03:06 PM ASA Class CLASS II- Mild systemic disease (i.e. well-controlled diabetes, hypertension, asthma, cigarette smoking) [facility] 03:06 PM Time: 15:06 1 ml Lidocaine 2% to right radial Subcutaneous Given by Dio Gonzalez MD [facility] 03:06 PM Access obtained by percutaneous puncture. 5Fr 10cm Terumo Glidesheath sheath placed in right Radial artery. [id number] [facility] 03:06 PM Time: 15:06 Patient given 200 mcg Nitroglycerin, and 2.5 mg Verapamil Intraarterial by Dio Gonzalez MD. This is given to reduce risk of vessel spasm and thrombosis. [facility] 03:07 PM 5Fr FL 3.5 catheter inserted over the wire [facility] kmavis 03:07 PM 0.035 260cm Navilyst 3mmJ wire [id number] km[facility] 03:07 PM LCA angiography performed in multiple views. [facility] 03:07 PM HR=58 bpm, ZJKA=232/57 mmhg, SpO2=99.0 %, Resp=22 B/min 03:08 PM Recorded Pressure: Ao, HR=58, Condition=Condition 1 (Aorta) Ao 135/59/86 03:09 PM Catheter removed [facility] 03:09 PM 5Fr FR 4 catheter inserted over the wire DN kmavis 03:11 PM RCA angiography performed in multiple views. [facility] 03:11 PM Recorded Pressure: Ao, HR=58, Condition=Condition 1 (Aorta) Ao 141/62/89 03:11 PM Catheter removed [facility] 03:12 PM 5Fr Pigtail catheter inserted over the wire [facility] kmavis 03:12 PM Catheter crossed the aortic valve and was selectively placed in the left ventricle. Pressures recorded on pullback for left heart catheterization. kmavis 03:12 PM HR=55 bpm, ZYJQ=659/54 mmhg, SpO2=98.0 %, Resp=26 B/min 03:12 PM Recorded Pressure: LV, HR=56, Condition=Condition 1 (Left Ventricle) LV 142/19/26 03:13 PM Recorded Pressure: LV, Ao, HR=56, Condition=Condition 1 (Left Ventricle) LV 135/-20/20, (Aorta) Ao 19/-56/-2 03:13 PM Bolus angiogram of left Ventricle complete: hand injected [facility] 03:14 PM Catheter removed [facility] 03:15 PM Procedure completed at 15:15 02/21/2019 [facility] 03:16 PM Coronary Dominance: Left [facility] 03:16 PM Did you address ROSE flow and Dominance? YesCoronary Dominance: Left kmavis 03:17 PM Sign out completed: Radiation Dose 121.91 mGy, 11.2 Gy/cm2 Fluoro Time: 1.7 Isovue 370 - 200ml contrast 60 ml given by Dio Gonzalez MD. Complications: None. The patient was discharged out of the labor relations analyst in stable condition. Sedation minutes 15. Cardiac Rehab Consult needed: No. Confirmed administered medications: Yes kmavis 03:17 PM Isovue 370 - 200ml,1 Bottle(s) used. [facility] 03:17 PM Arterial sheath pulled, Vasc Band closure device used and was Successful S/N. kmavis 03:17 PM HR=60 bpm, HJMF=888/64 mmhg, SpO2=97.0 %, Resp=21 B/min 03:18 PM 13 ml air in Vasc Band. [facility]avis 03:18 PM Estimated Blood Loss: minimal [facility] 03:18 PM Post ECG Sinus Bradycardia [facility] 03:18 PM Time: 15:03LOC: 4 = Oriented but drowsy [facility] 03:18 PM Time: 15:03 Patient comfortable and pain free: Yes [facility] 03:18 PM Post Blood Pressure 145/64 [facility] 03:18 PM Information taught Cardiac Cath and Vasc Band [facility] 03:18 PM Education needs Procedure, Plan of Care, and Disease Process [facility] 03:19 PM Learning barriers :None [facility] 03:19 PM Education Methods Verbal [facility] 03:19 PM Education evaluation Able to repeat information [facility] 03:19 PM Site status No bleeding/ No Hematoma - Rt Wrist as reported by Winnie Sanchez RT (R) at 15:19 [facility] 03:19 PM Opsite applied [facility] 03:21 PM Plavix, Effient or Brilinta given Yes [facility] 03:21 PM Delay to floor No [facility] 03:21 PM Patient out of room: 15:21 [facility] 03:21 PM Family placed in consult room. [facility] 03:21 PM Complications: None [facility] 03:23 PM Report given to Yamile HOFF Pt taken to 3B Room #24. 15:23 [facility] Complications Complication None None None Hemodynamics Pressures Site Systolic/A Wave Diastolic/V Wave Mean AO 135 59 86 AO 141 62 89 LV 142 19 26 LV 135 -20 20 AO 19 -56 -2 Post Procedure Information Blood Pressure: 145/64 mmHg Rhythm: Sinus Bradycardia Post procedural instructions were given Closure Device Time Device Success/Fail 02/21/2019 3:22:00 PM Mechanical Compression Successful Site Checks Time Location Status Staff Sheath In? Note 03:19 PM Rt Wrist No bleeding/ No Hematoma Winnie Sanchez RT (R) Pulses Time Site Pre-Procedure Post-Procedure Note Bilateral radial 1+ Bilateral DP 1+ Updated by Dahlia Green RN on 02/21/2019 3:24:31 PM electronically signed on 02/21/2019 3:25:08 PM with status of Final
[2019-02-22 03:07] LABS: Potassium 3.8 mEq/L (3.5-5.1)
[2019-02-22 08:53] VITALS: BP 124/47
[2019-02-22] MEDS: Aspirin Enteric Coated 81 MG Tablet PO SCH (08:54)
[2019-02-22] MEDS: Isosorbide MONOnitrate (24 HR) 30 MG TAB.ER.24H PO SCH (08:54)
--- NOTE | 2019-02-22 09:09 | Discharge Summary ---
- NOTES TO OUTPATIENT PROVIDER Notes to Outpatient Provider: f/u with PCP in one week. f/u with Cardiology in 2 weeks. f/u with Nephrology in 2-4 weeks. f/u with Vascular surgery for your Left ICA 60-79% stenosis in 4-6 weeks. Please go for lab work BMP in 3 days and f/u with Neprhology office for results. Orders not resulted at time of discharge: Pending orders 02/21/19 04:00 UA w. reflex microscopic [Urinalysis reflex Microscopic] [URIN] AM 0400 Date of Encounter: 02/22/19 Time of Encounter: 09:04 - Discharge Diagnosis (1) Abnormal stress test Priority: Primary Status: Acute (2) Elevated troponin Priority: Primary Status: Acute (3) HTN (hypertension) Priority: Secondary Status: Acute Qualifiers: Hypertension type: essential hypertension Qualified Code(s): I10 - Essential (primary) hypertension (4) HLD (hyperlipidemia) Priority: Secondary Status: Acute Qualifiers: Hyperlipidemia type: unspecified Qualified Code(s): E78.5 - Hyperlipidemia, unspecified (5) CKD (chronic kidney disease), stage III Priority: Secondary Status: Acute (6) S/p nephrectomy Priority: Secondary Status: Acute Hospital course: Ms. 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 She denied any CP / SOB. She denied any N/V/Diarrhea. Pt stated she was told she might have CAD when she had multiple CT scans done as f/u on her s/p renal cell cancer. She was admitted in the hospital and placed her on ekg monitor. Her trop peaked at 0.08 and started trending down. She was started on Heparin gtt. Pt was evaluated by Cardiology who did LHC y/d showed RCA normal, LCA 25% mid lad, normal circumflex. Card recommended continue bblockers and cardiac MRI as an out pt to search for significant LGE. She was given IV hydration with the help of Nephrology here for CKD-3 to avoid any contrast induced nephropathy. Her cr stable and at baseline, so will d/c her home in stable condition. - Time Spent with Patient Total time spent providing and/or coordinating discharge services: - Discharge Medications Prescriptions: New Aspirin Enteric Coated [Aspirin EC] 81 mg PO DAILY #30 tablet. Continued Isosorbide MONOnitrate (24 HR) [Imdur] 30 mg PO DAILY Alirocumab [Praluent Pen] 75 mg SQ Q2W Metoprolol [Lopressor] 25 mg PO BID Losartan Potassium 50 mg PO DAILY Home Medications: Isosorbide MONOnitrate (24 HR) [Imdur] 30 mg PO DAILY 03/29/17 [History] Alirocumab [Praluent Pen] 75 mg SQ Q2W 10/23/18 [History] Losartan Potassium 50 mg PO DAILY 02/20/19 [History] Metoprolol [Lopressor] 25 mg PO BID 02/20/19 [History] Aspirin Enteric Coated [Aspirin EC] 81 mg PO DAILY #30 tablet. 02/22/19 [Rx] Allergies/Adverse Reactions: Allergy/AdvReac Type Severity Reaction Status Date / Time bee venom protein (honey bee) Allergy Severe Anaphylaxis Verified 10/23/18 10:03 ampicillin Allergy Hives Verified 10/23/18 10:03 JULIO C Inhibitors AdvReac Cough Verified 10/23/18 10:03 evolocumab AdvReac Cough Verified 10/23/18 10:03 [From Repatha Pushtronex] losartan AdvReac See Verified 10/23/18 10:03 Comments potassium AdvReac See Verified 10/23/18 10:03 Comments Gxkxvrj-Fqn-Jdo Reductase AdvReac Muscle Pain Verified 10/23/18 10:03 Inhibitor [Statins] Date of admission: 02/20/19 14:05 Primary care physician: David Chavez DO Consults: 02/20/19 12:30 Consult to Cardiology [CONS] Stat Comment: Consulting Provider: Cardiology Carol Reason for Consult: abnormal stress test, VTACH Time Notified: 12:31 Call Completed: Yes 02/20/19 14:20 Consult to Nephrology [CONS] Routine Consulting Provider: [facility] Reason for Consult: Abnormal stress test - Going for [facility] in AM Time Notified: 14:20 Call Completed: Yes - Constitutional Vitals: Temp Pulse Resp BP Pulse Ox 97.6 F 58 19 124/47 98 02/22/19 07:48 02/22/19 08:52 02/22/19 07:48 02/22/19 08:52 02/22/19 07:48 General appearance: Present: cooperative, A&O X 3, no acute distress, answers questions appropriately Exam: Gen: Alert, awake, Oriented to time,place and person Chest: Diminished breath sounds B/L, No wheezing, No crackles, No rales Heart: S1S2+ RRR No murmurs Abd: Soft, NT, BS +, No organomegaly Ext: No edema, pulses are palpable, No calf tenderness Neuro : No acute focal neuro deficits noticed Skin: No rash. - Patient Status Disposition: Home, Self-Care Condition: Good Overall status at discharge: patient is back to baseline - Discharge Instructions Follow Up With: David Chavez DO [Primary Care Provider] - 02/28/19 11:30 am Conchita Hrerera MD [Partnered Physician] - Ambrose Chin MD [Partnered Physician] - - Diet and Activity Activity: increase activity as tolerated Diet: low salt diet
--- NOTE | 2019-02-22 09:59 | Nephrology Progress Note ---
Date of Encounter: 02/22/19 Time of Encounter: 09:57 - Assessment and Plan (1) CKD (chronic kidney disease), stage III Current Visit: Yes Status: Acute s/p nephrectomy to renal cell carcinoma in 2017. Discussed at length contrast induced nephropathy,and best way to prevent complications. GFR stable today, 45. Recommendations for outpatient: Repeat carotid dopplers in 6 months, f/u with cardiothorocis. BMP in 3 days. F/U with Dr. Lopez in April, encouraged to call the office sooner if any complications. Pt reports she is concerned with increasing Lopressor to 50 mg daily, she would like to continue 25 daily, she has a history of bradycardia in the 40's and 50's. (2) HLD (hyperlipidemia) Current Visit: Yes Status: Acute Qualifiers: Hyperlipidemia type: unspecified Qualified Code(s): E78.5 - Hyperlipidemia, unspecified (3) HTN (hypertension) Current Visit: Yes Status: Acute Qualifiers: Hypertension type: essential hypertension Qualified Code(s): I10 - Essential (primary) hypertension (4) S/p nephrectomy Current Visit: Yes Status: Acute Subjective Principal diagnosis: abnormal stress test Objective - Vital Signs Vital signs: Vital Signs Temp Pulse Resp BP Pulse Ox 02/22/19 08:52 58 124/47 02/22/19 07:48 97.6 F 54 19 125/71 98 02/22/19 02:40 98.1 F 61 16 136/73 96 02/21/19 23:34 98.1 F 57 16 114/52 98 02/21/19 19:20 97.9 F 60 16 129/50 98 02/21/19 18:00 65 02/21/19 17:41 60 02/21/19 17:24 68 111/60 95 02/21/19 16:54 65 123/54 96 02/21/19 16:53 55 02/21/19 16:38 60 02/21/19 16:25 65 116/45 97 02/21/19 16:15 57 111/67 97 02/21/19 15:39 54 145/52 98 02/21/19 15:24 53 131/54 98 02/21/19 11:42 97.9 F 82 16 115/64 96 Intake and Output 02/21/19 02/22/19 02/22/19 23:59 07:59 15:59 Intake Total 721 / 2461 1000 / 1120 120 / 1120 Balance 721 / 2461 1000 / 1120 120 / 1120 Intake: IV Fluids 2100 1000 / 1000 0.9 % Sodium Chloride 1,000 ML 1999 1000 / 1000 @ 100 mls/hr IVC .Q10H JESU Rx#: [id number] Oral 360 / 360 120 / 120 Other: Meal Dinner Breakfast Percent of Meal Consumed 100% 100% # Voids 2 Weight 76.3 kg Patient Weight 02/22/19 23:59 Weight 76.3 kg - Lab 02/20/19 19:27 02/22/19 02:07 Most recent lab results 02/22/19 02:07 Calcium 8.0 L Consult Discharge Plan - Plan Referrals: [facility] [Provider Group] (Office will call with date and time of appointment. ) Ambrose Chin MD [Partnered Physician] - (Office will call with date and time of appointment. ) Conchita Herrera MD [Partnered Physician] - (Office will call with date and time of appointment. ) David Chavez DO [Primary Care Provider] - 02/28/19 11:30 am Prescriptions: Aspirin Enteric Coated [Aspirin EC] 81 mg PO DAILY #30 tablet.dr Prescription Printed
== END 2019-02-22 10:48 | disposition home or self-care (01) ==
LOC: EMEROOARM 11:33 → 3BNU 11:33
PROVIDERS: ADMIT Pharmacist; ATTEND Pharmacist